=== PATIENT | female | born 1985 | race Caucasian/White ===

== ENCOUNTER 2021-03-23 14:54 | Emergency (ER) | payer OTHER ==
[~2021-03-23] VITALS: Ht 167.6 cm; Wt 66.0 kg
[2021-03-23 15:03] VITALS: BP 95/59
[2021-03-23] MEDS ORDERED: TETRACAINE 0.5% OPHTH DROPS 4ML EACHEYE ONE (15:30)
[2021-03-23] MEDS ORDERED: FLUORESCEIN SODIUM 1MG/STRIP EACHEYE ONE (15:30)
[2021-03-23] MEDS ORDERED: SODIUM CHLORIDE 0.9% IRRIG SOLUTION 1000ML IR ONE (15:30)
[2021-03-23] MEDS ORDERED: NAPHADR EACHEYE (16:59)
== END 2021-03-23 17:06 | disposition home or self-care (01) ==
LOC: ER 14:54
DX: H10.213 Acute toxic conjunctivitis, bilateral (principal); Y08.89XA Assault by other specified means, initial encounter; Y93.89 Activity, other specified; Y92.89 Other specified places as the place of occurrence of the external cause; Y99.0 Civilian activity done for income or pay
CPT/HCPCS: 99283; Z7610

== ENCOUNTER 2021-08-26 18:23 | Emergency (ER) | payer SELFPAY ==
[~2021-08-26] VITALS: Ht 167.6 cm; Wt 59.0 kg
[~2021-08-26 18:23] MED LIST: NAPHADR EACHEYE
[2021-08-26] MEDS ORDERED: IBUPROFEN 400MG TABLET PO ONE (19:15)
[2021-08-26] MEDS ORDERED: IBUP-2028 MT (19:55)
[2021-08-26 20:15] VITALS: BP 115/62
== END 2021-08-26 20:20 | disposition home or self-care (01) ==
LOC: ER 18:23
DX: S80.11XA Contusion of right lower leg, initial encounter (principal); M54.2 Cervicalgia; M25.511 Pain in right shoulder; M25.551 Pain in right hip; W01.0XXA Fall on same level from slipping, tripping and stumbling without subsequent striking against object, initial encounter; Y93.89 Activity, other specified; Y92.89 Other specified places as the place of occurrence of the external cause; Y99.0 Civilian activity done for income or pay
CPT/HCPCS: 99282